=== PATIENT | female | born 1950 | race Caucasian/White ===

== ENCOUNTER 2019-11-06 18:28 | Emergency (ER) | payer OTHER ==
[~2019-11-06] VITALS: Ht 165.1 cm; Wt 83.9 kg
[~2019-11-06 18:28] MED LIST: ASPI-858 PO; CEL20 PO; CHOL100053 PO; FELO10TA3 PO; NITR0.4T47 SL; PRO40 PO
--- NOTE | 2019-11-06 18:33 | NUR ---
Pt ambulated to bed 1
--- NOTE | 2019-11-06 18:37 | NUR ---
Patient arrived via POV, AAOx4, and ambulatory with steady gait. Patient c/c of chest pain. Onset was at 181. Patient states she has history of angina and given Rx for nitro which she took at 1820 and 182. No relief from nitroglycerin. Patient states pain is to anterior center chest and radiates to left chest and shoulder. Patient rates 10/10 sharp, and pressure. Patient is pale and diaphoretic. Patient notes nausea without vomiting. Patient states no SOB at this time. Will continue to follow up and monitor.
[2019-11-06 18:38] VITALS: BP_SYST 111
[2019-11-06] MEDS ORDERED: NACL 0.9% 1,000 ML IV ONE (18:38)
[2019-11-06] MEDS ORDERED: NITROGLYCERIN 0.4 MG TAB.SUBL SL ONE (18:45)
[2019-11-06] MEDS ORDERED: ASPIRIN 81 MG TAB.CHEW PO ONE (18:45)
--- NOTE | 2019-11-06 19:15 | NUR ---
# 20 gauge angiocath placed to left AC. Use of asceptic technique. Opsite placed over site. Blood return noted. Flushed with 10 cc of normal saline. No evidence of infiltration noted. Patient tolerated well.
[2019-11-06 19:26] LABS: BASOPHILS # (AUTO) 0.1 K/uL (0.0-0.2); BASOPHILS % (AUTO) 0.8 % (0.0-2.0); EOSINOPHILS # (AUTO) 0.3 K/uL (0.0-0.4); EOSINOPHILS % (AUTO) 2.1 % (0.0-4.0); HEMATOCRIT 40.3 % (36-48); HEMOGLOBIN 13.1 g/dL (12.0-16.0); LYMPHOCYTES # (AUTO) 4.4 K/uL (1.0-5.5); LYMPHOCYTES % (AUTO) 33.1 % (20.5-51.5); MEAN CORPUSCULAR HEMOGLOBIN 29 pg (27-31); MEAN CORPUSCULAR HGB CONC 33 % (32-36); MEAN CORPUSCULAR VOLUME 90 fL (79.0-98.0); MONOCYTES # (AUTO) 0.8 K/uL (0.0-1.0); MONOCYTES % (AUTO) 6.1 % (1.7-9.3); NEUTROPHILS # (AUTO) 7.7 K/uL (1.8-7.7); NEUTROPHILS % (AUTO) 57.9 % (40.0-70.0); PLATELET COUNT (AUTO) 356 K/uL (130-430); RED BLOOD CELL COUNT(AUTO) 4.47 MIL/uL (4.2-6.2); RED CELL DISTRIBUTION WIDTH 14.1 % (9.0-15.0); WHITE BLOOD COUNT (AUTO) 13.3 K/uL (4.8-10.8)
[2019-11-06 19:29] LABS: CALCIUM 8.5 mg/dL (8.4-11.0); CREATININE 1.03 mg/dL (0.55-1.30); POTASSIUM 3.3 mmol/L (3.5-5.1)
[2019-11-06 19:38] LABS: PROTHROMBIN TIME 9.8 SECS (9.5-12.5)
[2019-11-06 19:55] LABS: ALBUMIN 3.7 g/dL (3.4-4.8); TOTAL BILIRUBIN 0.3 mg/dL (0.0-1.0)
--- NOTE | 2019-11-06 21:28 | NUR ---
ER Dr. Townsend at bedside explaining results to patient.
--- NOTE | 2019-11-06 21:51 | NUR ---
Assisted pt to bathroom. Collected urine sample. Sent urine to lab.
[2019-11-06 22:14] LABS: BILIRUBIN,URINE NEGATIVE (NEGATIVE); BLOOD, URINE NEGATIVE (NEGATIVE); COLOR,URINE YELLOW (YELLOW); GLUCOSE,URINE NEGATIVE (NEGATIVE); KETONES,URINE NEGATIVE (NEGATIVE); LEUKOCYTE ESTERASE ,URINE 1+ (NEGATIVE); NITRITE, URINE NEGATIVE (NEGATIVE); PROTEIN URINE NEGATIVE (NEGATIVE); UROBILINOGEN,URINE 0.2 (0.2-1.0)
[2019-11-06] MEDS ORDERED: POTASSIUM CHLORIDE 20 MEQ TAB.PRT.SR PO ONE (22:15)
[2019-11-06 22:19] LABS: CLARITY/URINE SLIGHTLY HAZY (CLEAR)
[2019-11-06 22:55] LABS: BACTERIA,URINE FEW /HPF (None Seen); HYALINE CASTS, URINE 0-10 /LPF (None Seen); RBC,URINE 0-3 /HPF (0-3)
--- NOTE | 2019-11-06 23:00 | NUR ---
ER Dr. Townsend at bedside explaining results to patient.
[2019-11-06 23:16] VITALS: BP_SYST 109
== END 2019-11-06 23:16 | disposition home or self-care (01) ==
LOC: SED 18:28
DX: R07.89 Other chest pain (principal); I10 Essential (primary) hypertension; Z79.82 Long term (current) use of aspirin; Z79.899 Other long term (current) drug therapy; Z86.79 Personal history of other diseases of the circulatory system
CPT/HCPCS: 36415; 71045; 80053; 81000; 82150; 82550; 83605; 83690; 83880; 84484; 85025; 85610; 85730; 87040; 87086; 93005; 99284; J7030

== ENCOUNTER 2023-03-21 23:13 | Inpatient (IN) | payer MEDICARE ==
[~2023-03-21] VITALS: Ht 165.1 cm; Wt 85.7 kg
[~2023-03-21 23:13] MED LIST changes: +ATEN-41 PO; +DILR3 PO; -FELO10TA3 PO; +FELO10TA46 PO; +NOR10 PO; +NORT50CA5 PO; +POTA-197 PO; +PRAV20TA PO; +SYN50 PO
[2023-03-21 23:20] VITALS: BP_SYST 133
[2023-03-21] MEDS ORDERED: MORPHINE 4 MG INJ. 4 MG/ML VIAL IVP ONE (23:45)
[2023-03-22 00:19] LABS: HEMOGLOBIN 13.3 g/dL (12.0-16.0); MEAN CORPUSCULAR HGB CONC 33 % (32-36); RED CELL DISTRIBUTION WIDTH 12.9 % (9.0-15.0); WHITE BLOOD COUNT (AUTO) 26.4 K/uL (4.8-10.8)
[2023-03-22 00:24] LABS: HEMATOCRIT 40.5 % (36-48); MEAN CORPUSCULAR HEMOGLOBIN 29 pg (27-31); MEAN CORPUSCULAR VOLUME 89 fL (79.0-98.0); PLATELET COUNT (AUTO) 290 K/uL (130-430); RED BLOOD CELL COUNT(AUTO) 4.55 MIL/uL (4.2-6.2)
[2023-03-22 00:38] LABS: ALANINE AMINOTRANSFERASE 17 U/L (12-78); ANION GAP 11 (5-15); ASPARTATE AMINOTRANSFERASE 15 U/L (10-37); CALCIUM 7.8 mg/dL (8.4-11.0); CHLORIDE 97 mmol/L (98-107); CREATININE 0.81 mg/dL (0.55-1.30); GLUCOSE 144 mg/dL (70-99); LIPASE 33 U/L (73-393); TOTAL BILIRUBIN 0.8 mg/dL (0.0-1.0); UREA NITROGEN, BLOOD 16 mg/dL (8-21)
[2023-03-22 00:39] LABS: BAND % (MANUAL) 4 % (0-6); BASOPHILS % (MANUAL) 0 % (0-2); EOSINOPHILS % (MANUAL) 0 % (0-7); LYMPHOCYTES % (MANUAL) 17 % (20-46); MONOCYTES % (MANUAL) 7 % (0-11)
[2023-03-22] MEDS ORDERED: VANCOMYCIN HCL 1,000 MG in NS 250 ML IV ONE (00:45)
[2023-03-22] MEDS ORDERED: NACL 0.9% 2,000 ML IV ONE (00:45)
[2023-03-22] MEDS ORDERED: PIPERACILLIN/TAZO 3.375 GM in NS 50 ML IV ONE (00:45)
[2023-03-22] MEDS ORDERED: PIPERACILLIN/TAZOBACTAM 3.375 GM/VIAL (ZOSYN) IV ONE (00:58)
[2023-03-22 01:00] LABS: PHOSPHORUS 2.6 mg/dL (2.7-4.5)
[2023-03-22] MEDS ORDERED: KCL 20 mEq in 100 mL (PREMIX) 100 ML IV ONE (01:00)
[2023-03-22] MEDS ORDERED: VANCOMYCIN HCL 1000 MG/VIAL IV ONE (01:34)
[2023-03-22 02:39] LABS: BILIRUBIN,URINE NEGATIVE (NEGATIVE); BLOOD, URINE NEGATIVE (NEGATIVE); CLARITY/URINE CLEAR (CLEAR); COLOR,URINE YELLOW (YELLOW); GLUCOSE,URINE NEGATIVE (NEGATIVE); KETONES,URINE NEGATIVE (NEGATIVE); LEUKOCYTE ESTERASE ,URINE TRACE (NEGATIVE); NITRITE, URINE NEGATIVE (NEGATIVE); PROTEIN URINE NEGATIVE (NEGATIVE); UROBILINOGEN,URINE 0.2 (0.2-1.0)
[2023-03-22 02:58] LABS: BACTERIA,URINE None Seen /HPF (None Seen); HYALINE CASTS, URINE 0-10 /LPF (None Seen); MUCUS,URINE None Seen /LPF (None Seen); RBC,URINE NONE SEEN /HPF (0-3)
[2023-03-22] MEDS ORDERED: MORPHINE 4 MG INJ. 4 MG/ML VIAL IVP ONE (03:45)
[2023-03-22] MEDS ORDERED: NACL 0.9% 1,000 ML IV ONE (04:00)
[2023-03-22 04:26] LABS: PROTHROMBIN TIME 10.3 SECS (9.5-12.5)
[2023-03-22 06:05] LABS: BASOPHILS # (AUTO) 0.2 K/uL (0.0-0.2); BASOPHILS % (AUTO) 0.9 % (0.0-2.0); EOSINOPHILS % (AUTO) 0.1 % (0.0-4.0); HEMATOCRIT 38.1 % (36-48); HEMOGLOBIN 12.6 g/dL (12.0-16.0); LYMPHOCYTES # (AUTO) 3.2 K/uL (1.0-5.5); LYMPHOCYTES % (AUTO) 13.1 % (20.5-51.5); MEAN CORPUSCULAR HEMOGLOBIN 29 pg (27-31); MEAN CORPUSCULAR HGB CONC 33 % (32-36); MEAN CORPUSCULAR VOLUME 89 fL (79.0-98.0); MONOCYTES # (AUTO) 1.8 K/uL (0.0-1.0); MONOCYTES % (AUTO) 7.5 % (1.7-9.3); NEUTROPHILS # (AUTO) 18.9 K/uL (1.8-7.7); NEUTROPHILS % (AUTO) 78.4 % (40.0-70.0); PLATELET COUNT (AUTO) 283 K/uL (130-430); RED CELL DISTRIBUTION WIDTH 12.9 % (9.0-15.0); WHITE BLOOD COUNT (AUTO) 24.1 K/uL (4.8-10.8)
[2023-03-22 06:21] LABS: ALANINE AMINOTRANSFERASE 15 U/L (12-78); ALBUMIN 2.6 g/dL (3.4-4.8); ASPARTATE AMINOTRANSFERASE 13 U/L (10-37); CREATININE 0.63 mg/dL (0.55-1.30); GLUCOSE 134 mg/dL (70-99); TOTAL BILIRUBIN 0.7 mg/dL (0.0-1.0); UREA NITROGEN, BLOOD 14 mg/dL (8-21)
[2023-03-22 06:41] LABS: ANION GAP 13 (5-15); CALCIUM 7.8 mg/dL (8.4-11.0); CHLORIDE 96 mmol/L (98-107)
[2023-03-22 07:14] VITALS: BP_SYST 136
[2023-03-22] MEDS ORDERED: POTASSIUM CHLORIDE 20 MEQ TAB.PRT.SR PO PRN (07:15)
[2023-03-22] MEDS ORDERED: KCL 40 mEq in 100 mL (PREMIX) 100 ML IV ONE (07:15)
[2023-03-22] MEDS ORDERED: ONDANSETRON HCL 4 MG/2 ML VIAL IVP PRN (07:15)
[2023-03-22] MEDS ORDERED: MUPIROCIN 2% TOPICAL OINTMENT 22 GM NS PRN (07:15)
[2023-03-22] MEDS ORDERED: MAGNESIUM SULFATE 50 ML IV PRN (07:15)
[2023-03-22] MEDS ORDERED: MORPHINE 2 MG/ML INJ. SYRINGE IVP PRN (07:15)
[2023-03-22] MEDS ORDERED: ACETAMINOPHEN 325 MG TABLET PO PRN ×2 (07:15→08:00)
[2023-03-22] MEDS ORDERED: DOCUSATE SODIUM 100 MG CAPSULE PO PRN (07:15)
[2023-03-22] MEDS: MORPHINE 2 MG/ML INJ. SYRINGE IVP PRN ×4 (08:30→22:05)
[2023-03-22] MEDS: CITALOPRAM HYDROBROMIDE 20 MG TABLET PO SCH (09:00)
[2023-03-22 09:14] VITALS: BP_SYST 140
[2023-03-22] MEDS: ATENOLOL 25 MG TABLET(TENORMIN) PO SCH (10:47)
[2023-03-22] MEDS: amLODIPine BESYLATE 10 MG TABLET PO SCH (10:47)
[2023-03-22] MEDS ORDERED: DIATR MEGLU/DIATRIZ SOD 30 ML SOLUTION PO ONE (11:03)
[2023-03-22] MEDS: POTASSIUM CHLORIDE 20 mEq in 100 mL (PREMIX) 100 ML x 2 doses IV SCH ×2 (11:03→15:55)
[2023-03-22] MEDS: PIPERACILLIN/TAZO 2.25G/DEX-IS 50 ML IV SCH ×2 (13:42→18:43)
[2023-03-22 17:25] VITALS: BP_SYST 128
[2023-03-22 20:00] VITALS: BP_SYST 130
[2023-03-23 00:21] VITALS: BP_SYST 144
[2023-03-23] MEDS: PIPERACILLIN/TAZO 2.25G/DEX-IS 50 ML IV SCH ×3 (00:42→15:15)
[2023-03-23 04:49] LABS: BASOPHILS % (AUTO) 0.2 % (0.0-2.0); EOSINOPHILS # (AUTO) 0.1 K/uL (0.0-0.4); EOSINOPHILS % (AUTO) 0.9 % (0.0-4.0); HEMATOCRIT 35.6 % (36-48); HEMOGLOBIN 11.8 g/dL (12.0-16.0); LYMPHOCYTES % (AUTO) 13.4 % (20.5-51.5); MEAN CORPUSCULAR HEMOGLOBIN 30 pg (27-31); MEAN CORPUSCULAR HGB CONC 33 % (32-36); MEAN CORPUSCULAR VOLUME 89 fL (79.0-98.0); MONOCYTES # (AUTO) 0.9 K/uL (0.0-1.0); MONOCYTES % (AUTO) 5.8 % (1.7-9.3); NEUTROPHILS # (AUTO) 11.9 K/uL (1.8-7.7); NEUTROPHILS % (AUTO) 79.7 % (40.0-70.0); PLATELET COUNT (AUTO) 243 K/uL (130-430); RED BLOOD CELL COUNT(AUTO) 3.99 MIL/uL (4.2-6.2); RED CELL DISTRIBUTION WIDTH 12.9 % (9.0-15.0)
[2023-03-23] MEDS: MORPHINE 2 MG/ML INJ. SYRINGE IVP PRN ×2 (04:55→09:48)
[2023-03-23 05:41] LABS: ANION GAP 9 (5-15); CALCIUM 7.2 mg/dL (8.4-11.0); CHLORIDE 104 mmol/L (98-107); CREATININE 0.42 mg/dL (0.55-1.30); GLUCOSE 114 mg/dL (70-99); UREA NITROGEN, BLOOD 7 mg/dL (8-21)
[2023-03-23] MEDS ORDERED: LEVOTHYROXINE SODIUM 0.05 MG TABLET PO SCH (07:00)
[2023-03-23] MEDS ORDERED: K PHOS 30 MM in NS 250 ML IV ONE ×2 (08:15→11:00)
[2023-03-23 08:19] VITALS: BP_SYST 152
[2023-03-23] MEDS ORDERED: POTASSIUM CHLORIDE 20 MEQ TAB.PRT.SR PO SCH (09:00)
[2023-03-23] MEDS: amLODIPine BESYLATE 10 MG TABLET PO SCH (09:49)
[2023-03-23] MEDS: CITALOPRAM HYDROBROMIDE 20 MG TABLET PO SCH (09:49)
[2023-03-23] MEDS: ATENOLOL 25 MG TABLET(TENORMIN) PO SCH (09:50)
[2023-03-23 11:19] VITALS: BP_SYST 135
[2023-03-23 15:52] VITALS: BP_SYST 129
[2023-03-23 16:00] VITALS: BP_SYST 120
[2023-03-23 17:07] VITALS: BP_SYST 129
== END 2023-03-23 18:30 | disposition short-term general hospital (02) | DRG 872 ==
LOC: SED 23:13 → STU 03-22 03:46 → SMU 03-23 17:36
PROVIDERS: ADMIT Family Medicine; ATTEND Family Medicine
DX: A41.9 Sepsis, unspecified organism (principal); E87.1 Hypo-osmolality and hyponatremia; E44.0 Moderate protein-calorie malnutrition; K56.600 Partial intestinal obstruction, unspecified as to cause; K57.92 Diverticulitis of intestine, part unspecified, without perforation or abscess without bleeding; I10 Essential (primary) hypertension; E03.9 Hypothyroidism, unspecified; Z20.822 Contact with and (suspected) exposure to COVID-19; F29 Unspecified psychosis not due to a substance or known physiological condition; E83.39 Other disorders of phosphorus metabolism; E83.51 Hypocalcemia; E87.6 Hypokalemia; K52.9 Noninfective gastroenteritis and colitis, unspecified; Z90.49 Acquired absence of other specified parts of digestive tract; Z79.82 Long term (current) use of aspirin; Z79.899 Other long term (current) drug therapy; Z68.31 Body mass index [BMI] 31.0-31.9, adult
CPT/HCPCS: 36415; 76376; 80048; 80053; 81000; 83605; 83690; 83735; 84100; 85007; 85025; 85027; 85610-TC; 87040; 87230-TC; 96365; 96367; 96375; 99285; G0378; J2270; J2543; J3370; J3480; J7050; Q9964